=== PATIENT | male | born 1960 | race Caucasian/White ===

== ENCOUNTER 2025-04-15 11:31 | Emergency (ER) | payer BC, SELFPAY ==
--- NOTE | 2025-04-15 11:38 | EKG_ITS ---
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
[2025-04-15 11:51] VITALS: BP 170/93; PULSE 54; RESP 16; TEMP 37.1; O2SAT 98; BMI 28.7
--- NOTE | 2025-04-15 12:01 | XR_ITS ---
Examination: CT brain head without contrast. 2-D sagittal coronal reconstructions Date and time of exam:April 15, 2025 1225 hours INDICATIONS: Generalized head pain and weakness today CTDI: vol (mGy):55.3 DLP: (mGycm):1094 Technique: Multiple CT axial sections of the brain have been obtained, 5 mm slice thickness. Contrast has not been administered. 2-D sagittal, coronal reconstructions have been obtained Low dose protocols were performed. One or more of the following dose reduction techniques were used; automated exposure control, adjustment of the mA and/or KV according to patient size, use of iterative reconstruction technique. Findings: No significant ventricular enlargement. Significant left maxillary chronic sinusitis Intra-axial or extra-axial hemorrhage density is not seen. No mass effect or midline shift Basal cisterns are not remarkable. Fourth ventricle is midline. Cranial vault intact. Impression: Negative for acute hemorrhage, mass effect or midline shift Advise clinical correlation and follow-up accordingly
--- NOTE | 2025-04-15 12:01 | XR_ITS ---
Examination: PA lateral chest 2 views TECHNIQUE: Upright PA lateral chest 2 views Date and time: April 15, 2025 1234 hours INDICATIONS: Chest pain today. FINDINGS: No significant cardiac enlargement. No pneumonia or pulmonary edema. Moderate osteopenia. IMPRESSION: No active disease.
--- NOTE | 2025-04-15 12:01 | PD.EDRME ---
Rapid Medical Screening Exam RME Arrival date/time: 04/15/25 11:31 64-year-old male presents to the emergency department today for complaints of dizziness patient reports he had an episode approximately a week and a half ago reports he had 1 or 2 episodes since Chief Complaint: Chest Pain Vital signs: Vital Signs Temperature 98.7 F 04/15/25 11:51 Pulse Rate 54 L 04/15/25 11:51 Respiratory Rate 16 04/15/25 11:51 Blood Pressure 170/93 H 04/15/25 11:51 Pulse Oximetry (%) 98 04/15/25 11:51 Oxygen Delivery Method Room Air 04/15/25 11:51
[2025-04-15 13:12] LABS: Collection Type, Urine Clean Catch
[2025-04-15 13:13] LABS: Basophils # (Auto) 0.1 Thou/mm3 (0.0-0.2); Basophils % (Auto) 1 % (0-2.5); Eosinophils # (Auto) 0.1 Thou/mm3 (0.0-0.5); Eosinophils % (Auto) 1 % (0-10); Hematocrit 45.0 % (41.0-53.0); Hemoglobin 15.2 g/dL (13.5-16.0); Immature Granulocytes Auto 0.01 Thou/mm3 (0.00-0.00); Lymphocytes # (Auto) 2.9 Thou/mm3 (1.0-4.8); Lymphocytes % (Auto) 40 % (10-50); Mean Corpuscular HGB Conc 33.8 g/dl (31.0-37.0); Mean Corpuscular Hemoglobin 32.0 pg (25.0-35.0); Mean Corpuscular Volume 95 fL (80-100); Monocytes # (Auto) 0.6 Thou/mm3 (0.0-0.8); Monocytes % (Auto) 9 % (0-12); Neutrophils # (Auto) 3.7 Thou/mm3 (1.8-7.7); Neutrophils % (Auto) 50 % (37-80); Nucleated Red Blood Cell # 0.00 Thou/mm3 (0.00-0.00); Nucleated Red Blood Cell % 0 /100 WBC (0); Platelet Count 163 Thou/mm3 (140-440); RDW Standard Deviation 42.9 fL (35.1-43.9); Red Blood Count 4.75 Miln/mm3 (4.50-5.90); White Blood Count 7.4 Thou/mm3 (3.8-10.6)
[2025-04-15 13:17] LABS: Bilirubin,Urine Negative (Negative); Blood,Urine Negative (Negative); Clarity,Urine Clear (Clear/Hazy); Color,Urine Yellow (Lt Yel-Yel); Culture Indicated,Urine Not Indicated; Glucose, Urine Negative (Negative); Ketones,Urine Negative (Negative); Leukocyte Esterase,Urine Negative (Negative); Nitrite,Urine Negative (Negative); PH,Urine 6.0 (5.0-7.0); Protein,Urine Negative (Neg - Trace); RBC,Urine 1 /hpf (0-3); Specific Gravity,Urine 1.008 (1.001-1.035); Squamous Epithelial Cell,Urine < 1 /hpf (0-5); Urobilinogen,Urine Negative mg/dL (0.0-1.0); WBC,Urine < 1 /hpf (0-5)
[2025-04-15 13:24] LABS: Amphetamine/Methamp Scrn,U Negative (Negative); Barbiturate Screen,Urine Negative (Negative); Benzodiazepines Screen,Urine Negative (Negative); Benzoylecgonine Screen, Ur Negative (Negative); Fentanyl Screen,Urine Negative (Negative); Opiate Screen,Urine Negative (Negative); THC Screen,Urine Negative (Negative)
[2025-04-15 13:39] LABS: Alanine Aminotransferase 23 U/L (10-49); Albumin, Serum 4.4 gm/dL (3.4-4.8); Albumin/Globulin Ratio 1.5 (1.2-2.2); Alkaline Phosphatase 79 U/L (46-116); Anion Gap 8 (7-16); Aspartate Amino Transferase 26 U/L (0-34); BUN/Creatinine Ratio 9 Ratio (12-20); Bilirubin,Total 1.0 mg/dL (0.3-1.2); Blood Urea Nitrogen 11 mg/dL (9-23); Calcium 11.0 mg/dL (8.3-10.6); Calcium (Corrected) 11.0 mg/dL (8.5-10.1); Carbon Dioxide 26.6 mMol/L (20.0-31.0); Chloride 105 mMol/L (98-107); Creatinine (Component) 1.2 mg/dL (0.6-1.3); Estimated Creatinine Clearance 70.4 mL/min (>60); Globulin 2.9 gm/dL (2.3-3.5); Glucose 100 mg/dL (74-106); Magnesium 1.8 mg/dL (1.6-2.6); Osmolality,Calculated 278 (275-295); Potassium 4.3 mMol/L (3.4-5.1); Sodium 140 mMol/L (136-145); Total Protein 7.3 gm/dL (5.7-8.2); Troponin I < 0.020 ng/mL (0.0-0.045); eGFR > 60 See Note
[2025-04-15 13:40] LABS: B-Type Natriuretic Peptide 22 pg/mL (0-100)
[2025-04-15 15:21] LABS: INR 1.0 (0.9-1.3); Partial Thromboplastin Time 26.1 Seconds (22.0-36.0); Prothrombin Time 10.9 Seconds (9.0-12.2)
--- NOTE | 2025-04-15 17:10 | EDNOTE_ITS ---
<Statement entered by Xuan Mckee MD - 04/25/25 11:09> As co-signing physician, I was present and available for consult prn. I concur with the plan and care as documented by the midlevel provider. ED General RME/HPI General Chief complaint: Chest Pain Stated complaint: CP AND DIZZINESS X1.5 WK Time Seen by Provider: 04/15/25 16:51 Arrival date/time: 04/15/25 11:31 RME / HPI RME / HPI narrative: 64-year-old male presents to the emergency department today for complaints of dizziness patient reports he had an episode approximately a week and a half ago reports he had 1 or 2 episodes since. This lasted for several minutes. Denies any chest pain denies any other complaints no medication was taken prior to arrival. Related Data Home Medications ?Medication ?Instructions ?Recorded ?Confirmed No Known Home Medications 12/07/1811/12 Allergies Allergy/AdvReac Type Severity Reaction Status Date / Time No Known Allergies Allergy Verified 04/15/25 11:33 Review of Systems Review of Systems Narrative Review of Systems: Review of system reviewed and within normal limits except mentioned in HPI ED Exam Narrative Physical exam: VITAL SIGNS: Reviewed. GENERAL APPEARANCE: Alert and interactive, follows commands, no acute distress, HEAD AND FACE: Non-traumatic. ENT: PERRL, pink conjunctivitis, eyelid no trauma, Mucous membrane moist. NECK: Supple, nontender, no nuchal rigidity. CHEST: No tenderness, no crepitus, no paradoxical movement, no retractions. LUNGS: Clear, well ventilated, symmetric, no rales, no wheezing, no ronchi, no stridor, good breath sounds bilaterally. HEART: Regular rate, regular rhythm, no murmur, no gallops. ABDOMEN: Soft, positive bowel sounds, nondistended, no guarding, nontender, no rebound, no masses, RECTAL: Deferred. GENITAL: Deferred. NEUROLOGICAL: Gross motor function intact sensory function intact, Appropriate for age. MUSCULOSKELETAL: low back nontender, full range of motion. EXTREMITIES: Nontender, full range of motion. SKIN: Color pink, dry, no rash, no lacerations, no abrasions, no contusions. LYMPHATICS: Deferred. Course Quality Measures none Orders Category Date Time Status EKG (ED ONLY) *Do not use* NOW Care 04/15/25 11:[address] head/brain wo con Stat Exams 04/15/25 12:01 Completed EKG (ED Only) Stat Exams 04/15/25 11:38 Draft XR chest 2V Stat Exams 04/15/25 12:01 Completed B-Type Natriuretic Peptide Stat Lab 04/15/25 12:52 Completed CBC Stat Lab 04/15/25 12:52 Completed Comprehensive Metabolic Panel Stat Lab 04/15/25 12:52 Completed Drug Screen,Urine Stat Lab 04/15/25 12:58 Completed Magnesium Stat Lab 04/15/25 12:52 Completed Partial Thromboplastin Time Stat Lab 04/15/25 12:52 Completed Prothrombin Time with INR Stat Lab 04/15/25 12:52 Completed Troponin I Stat Lab 04/15/25 12:52 Completed Urinalysis, C/S if Indicated Stat Lab 04/15/25 12:58 Completed Vital Signs Vital signs: Vital Signs Temperature 98.7 F 04/15/25 11:51 Pulse Rate 54 L 04/15/25 11:51 Respiratory Rate 16 04/15/25 11:51 Blood Pressure 170/93 H 04/15/25 11:51 Pulse Oximetry (%) 98 04/15/25 11:51 Oxygen Delivery Method Room Air 04/15/25 11:51 Discharge Plan Plan Patient Disposition: HOME (Self Care) Discharge Disposition comment: Stable Prescriptions/Referrals Prescriptions/Med Rec: No Action No Known Home Medications Referrals: No Primary/Family,Physician [Primary Care Provider] - In 1 week Problem List Clinical Impression: Dizziness Patient/Caregiver Discharge Instructions Discharge Activity: activity as tolerated Education Materials: ED Dizziness, Uncertain Cause Additional Instructions: Thank you for the opportunity for serving you today. You are stable for discharged . You are advised to: Follow-up with your PCP in 1 to 2 days Return to ED for worsening of symptoms Print Language: Nepali Stand Alone Forms: Glenna Award Info., Patient Portal Info Letter MICHAEL/MARY Supervising Physician MICHAEL/MARY Supervising Physician: MD Jeni MDM Narrative MDM hospital course: 64-year-old male presents to the emergency department today for complaints of dizziness patient reports he had an episode approximately a week and a half ago reports he had 1 or 2 episodes since. This lasted for several minutes. Denies any chest pain denies any other complaints no medication was taken prior to arrival. Patient is workup today all came back normal including normal troponin. CT scan of the head came back unremarkable. I personally reviewed and interpreted the x-ray of this patient. There is no acute abnormalities found, no infiltrates no pneumothorax no hemothorax normal chest x-ray. Review of other structures was without significant abnormal findings also. I additionally reviewed the radiologist report and agree with the interpretation. EKG showed normal sinus rhythm, ventricular rate of 70 bpm, no ST segment ovation depression noted. Results discussed with the patient. While in the ED. There is no recurrence of dizziness or chest discomfort. Patient stable for discharge home. Patient has an appointment with PCP this coming Sunday.
[2025-04-15 17:18] VITALS: BP 162/89; PULSE 56; RESP 16; TEMP 36.7; O2SAT 97
== END 2025-04-15 17:20 | disposition home or self-care (01) ==
PROVIDERS: Nurse Practitioner Primary Care; Emergency Provider Emergency Medicine
DX: R42 Dizziness and giddiness (principal)
CPT/HCPCS: 36415; 70450; 71046; 80053; 80307; 81001; 83735; 83880; 84484; 85025; 85610; 85730; 93005; 99284